=== PATIENT | male | born 1995 | race Two or more races ===

== ENCOUNTER 2019-05-21 19:12 | Emergency (ER) | payer OTHER ==
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
[2019-05-21 19:27] VITALS: BP 119/73
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
[2019-05-22] MEDS ORDERED: IBUPROFEN 600 MG TABLET PO ONE (01:19)
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
== END 2019-05-22 02:20 | disposition home or self-care (01) ==
LOC: ER 19:12
DX: S02.121A Fracture of orbital roof, right side, initial encounter for closed fracture (principal); S00.81XA Abrasion of other part of head, initial encounter; R51 Headache; V03.90XA Pedestrian on foot injured in collision with car, pick-up truck or van, unspecified whether traffic or nontraffic accident, initial encounter; Y92.414 Local residential or business street as the place of occurrence of the external cause; F17.200 Nicotine dependence, unspecified, uncomplicated; Z59.0 Homelessness
CPT/HCPCS: 70450; 70486; 72125; 99283